=== PATIENT | female | born 1965 | race African-American/Black ===

== ENCOUNTER 2018-08-12 11:24 | Emergency (ER) | payer MEDICAID ==
[~2018-08-12] VITALS: Ht 170.2 cm; Wt 114.4 kg
[2018-08-12 11:31] VITALS: BP 143/78
== END 2018-08-12 22:10 | disposition left against medical advice (07) ==
LOC: ER 11:24
DX: R51 Headache (principal); Z53.21 Procedure and treatment not carried out due to patient leaving prior to being seen by health care provider

== ENCOUNTER 2018-08-18 08:43 | Emergency (ER) | payer MEDICAID ==
[~2018-08-18] VITALS: Ht 170.2 cm; Wt 114.0 kg
[2018-08-18] MEDS ORDERED: IBUPROFEN 800MG TABLET PO ONE (09:30)
[2018-08-18] MEDS ORDERED: TETANUS, DIPHTHERIA, PERTUSSIS VAC/PF 0.5ML (>7YR OLD) IM ONE (09:30)
[2018-08-18] MEDS ORDERED: BACITRACIN ZINC OINT UDPKT TOP ONE (09:30)
[2018-08-18 11:38] VITALS: BP 142/76
== END 2018-08-18 11:41 | disposition home or self-care (01) ==
LOC: ER 08:43
DX: S80.12XA Contusion of left lower leg, initial encounter (principal); E11.9 Type 2 diabetes mellitus without complications; I10 Essential (primary) hypertension; F17.200 Nicotine dependence, unspecified, uncomplicated; F14.10 Cocaine abuse, uncomplicated; Z98.890 Other specified postprocedural states; Y08.89XA Assault by other specified means, initial encounter; Y93.89 Activity, other specified; Y92.89 Other specified places as the place of occurrence of the external cause; Y99.8 Other external cause status
CPT/HCPCS: 73590; 73610; 73630; 90471; 90715; 99284; Z7610

== ENCOUNTER 2019-02-27 01:18 | Emergency (ER) | payer MEDICAID ==
[~2019-02-27] VITALS: Ht 170.2 cm; Wt 114.8 kg
[2019-02-27] MEDS ORDERED: HYDROCODONE/ACETAMINOPHEN 5/325MG TABLET PO ONE (04:30)
[2019-02-27] MEDS ORDERED: PENICILLIN V POTASSIUM 250MG TABLET PO STA (04:34)
[2019-02-27 05:11] VITALS: BP 142/88
[2019-02-27] MEDS ORDERED: PENICILLIN V POTASSIUM 250MG TABLET PO SCH (06:00)
== END 2019-02-27 05:24 | disposition home or self-care (01) ==
LOC: ER 01:18
DX: K04.7 Periapical abscess without sinus (principal); E11.9 Type 2 diabetes mellitus without complications; B19.20 Unspecified viral hepatitis C without hepatic coma; F17.200 Nicotine dependence, unspecified, uncomplicated; Z98.890 Other specified postprocedural states
CPT/HCPCS: 99283

== ENCOUNTER 2019-04-16 19:22 | Emergency (ER) | payer MEDICAID ==
[~2019-04-16] VITALS: Ht 170.2 cm; Wt 118.8 kg
[2019-04-16] MEDS ORDERED: KETOROLAC 60MG/2ML VIAL IM STA (22:31)
[2019-04-16] MEDS ORDERED: HYDROCODONE/ACETAMINOPHEN 5/325MG TABLET PO NR (23:15)
[2019-04-16 23:25] VITALS: BP 173/70
== END 2019-04-16 23:50 | disposition home or self-care (01) ==
LOC: ER 21:44
DX: K04.7 Periapical abscess without sinus (principal); K02.9 Dental caries, unspecified; R51 Headache; I10 Essential (primary) hypertension; F17.200 Nicotine dependence, unspecified, uncomplicated
CPT/HCPCS: 99283

== ENCOUNTER 2020-05-01 05:24 | Emergency (ER) | payer MEDICAID ==
[~2020-05-01] VITALS: Ht 170.2 cm; Wt 118.0 kg
[2020-05-01] MEDS ORDERED: SODIUM CHLORIDE 0.9% 1,000 ML IV ONE (06:39)
[2020-05-01] MEDS ORDERED: ONDANSETRON HCL 4MG/2ML INJ IV STA (06:39)
[2020-05-01] MEDS ORDERED: MORPHINE SULFATE 4 MG/ML CPJ (NOT FOR IM USE) IV STA (06:39)
[2020-05-01 07:15] LABS: BASOPHILS % 0.8 % (0.0-2.0); CHLORIDE 106 mEq/L (98-107); HEMOGLOBIN. 13.8 g/dL (12.0-16.0); LYMPHOCYTES % 25.3 % (20.0-50.0); MEAN CORPUSCULAR HEMOGLOBIN 25.6 pg (28.0-32.0); MEAN CORPUSCULAR VOLUME 76.2 fL (81.0-99.0); MEAN PLATELET VOLUME 7.8 fl (7.4-10.4); MONOCYTES % 10.3 % (2.0-8.0); NEUTROPHILS % 62.6 % (40.0-76.0); PLATELET 348 x1000/uL (130-400); RED BLOOD CELL COUNT 5.37 mill/uL (4.2-5.4); RED CELL DISTRIBUTION WIDTH 17.4 % (11.6-14.6)
[2020-05-01 07:16] LABS: INR 0.9; PROTHROMBIN TIME 10.1 sec (9.6-11.0)
[2020-05-01] MEDS ORDERED: KETOROLAC 15MG/ML VIAL IV ONE (08:15)
[2020-05-01] MEDS ORDERED: ACETAMINOPHEN 500MG TABLET PO ONE (08:15)
[2020-05-01 10:13] VITALS: BP 155/70
== END 2020-05-01 10:00 | disposition home or self-care (01) ==
LOC: ER 05:24
DX: M54.2 Cervicalgia (principal); I10 Essential (primary) hypertension; N28.9 Disorder of kidney and ureter, unspecified; F17.200 Nicotine dependence, unspecified, uncomplicated
CPT/HCPCS: 36415; 70360; 70450; 80053; 85025; 85610; 96374; 96375; 99285; J1885; J2270; J2405; J7030

== ENCOUNTER 2021-02-24 05:46 | Emergency (ER) | payer MEDICAID ==
[~2021-02-24] VITALS: Ht 170.2 cm; Wt 120.0 kg
[2021-02-24] MEDS ORDERED: TOPUD MT (06:22)
[2021-02-24] MEDS ORDERED: CYCL10TA7 MT (06:22)
[2021-02-24] MEDS ORDERED: KETOROLAC 60MG/2ML VIAL IM ONE (06:30)
[2021-02-24 06:32] VITALS: BP 147/75
== END 2021-02-24 06:32 | disposition home or self-care (01) ==
LOC: ER 05:46
DX: M54.12 Radiculopathy, cervical region (principal); I10 Essential (primary) hypertension; N28.9 Disorder of kidney and ureter, unspecified; Z98.890 Other specified postprocedural states; Z79.899 Other long term (current) drug therapy
CPT/HCPCS: 96372; 99283; J1885

== ENCOUNTER 2021-06-07 04:39 | Emergency (ER) | payer MEDICAID ==
[~2021-06-07] VITALS: Ht 170.2 cm; Wt 119.0 kg
[~2021-06-07 04:39] MED LIST: CYCL10TA7 MT; TOPUD MT
[2021-06-07] MEDS ORDERED: IBUP-2029 MT ×2 (05:19)
[2021-06-07] MEDS ORDERED: KETOROLAC 60MG/2ML VIAL IM ONE (05:30)
[2021-06-07] MEDS ORDERED: ACET-2708 MT (05:38)
[2021-06-07] MEDS ORDERED: IBUPROFEN 600MG TABLET PO ONE (05:45)
[2021-06-07] MEDS ORDERED: ACETAMINOPHEN 325MG TABLET PO ONE (05:45)
[2021-06-07 06:18] VITALS: BP 132/69
== END 2021-06-07 06:18 | disposition home or self-care (01) ==
LOC: ER 04:39
DX: M62.838 Other muscle spasm (principal); I10 Essential (primary) hypertension; Z98.890 Other specified postprocedural states; Z79.899 Other long term (current) drug therapy
CPT/HCPCS: 99283

== ENCOUNTER 2021-07-03 03:08 | Inpatient (IN) | payer MEDICAID, OTHER ==
[~2021-07-03] VITALS: Ht 170.2 cm; Wt 121.1 kg
[~2021-07-03 03:08] MED LIST changes: +ACET-2708 MT
[2021-07-03] MEDS ORDERED: MORPHINE SULFATE 4 MG/ML CPJ (NOT FOR IM USE) IV STA (04:41)
[2021-07-03] MEDS ORDERED: ONDANSETRON HCL 4MG/2ML INJ IV STA (04:41)
[2021-07-03] MEDS ORDERED: SODIUM CHLORIDE 0.9% 1,000 ML IV ONE (04:45)
[2021-07-03 05:09] LABS: BASOPHILS % 0.4 % (0.0-2.0); EOSINOPHILS % 1.3 % (0.0-5.0); HEMATOCRIT. 39.5 % (36.0-48.0); HEMOGLOBIN. 13.5 g/dL (12.0-16.0); LYMPHOCYTES % 11.6 % (20.0-50.0); MEAN CORPUSCULAR HEMOGLOBIN 24.6 pg (28.0-32.0); MEAN CORPUSCULAR VOLUME 71.9 fL (81.0-99.0); MEAN PLATELET VOLUME 7.7 fl (7.4-10.4); MONOCYTES % 5.8 % (2.0-8.0); NEUTROPHILS % 80.9 % (40.0-76.0); PLATELET 373 x1000/uL (130-400); RED CELL DISTRIBUTION WIDTH 17.8 % (11.6-14.6)
[2021-07-03 05:17] LABS: CHLORIDE 103 mEq/L (98-107)
[2021-07-03 07:23] LABS: CLARITY URINE CLEAR (CLEAR); COLOR URINE YELLOW (YELLOW); KETONES URINE NEGATIVE (NEGATIVE); LEUKOCYTE ESTERASE URINE NEGATIVE (NEGATIVE); NITRITE URINE NEGATIVE (NEGATIVE); OCCULT BLOOD URINE NEGATIVE (NEGATIVE); PH URINE 5.5 (4.5-8.0); PROTEIN URINE 3+ (NEGATIVE); SPECIFIC GRAVITY URINE 1.014 (1.005-1.030); UROBILINOGEN URINE 0.2 E.U./dL (0.2-1.0)
[2021-07-03] MEDS ORDERED: MORPHINE SULFATE 4 MG/ML CPJ (NOT FOR IM USE) IV ONE (07:30)
[2021-07-03] MEDS ORDERED: ONDANSETRON HCL 4MG/2ML INJ IV PRN (09:00)
[2021-07-03] MEDS ORDERED: MORPHINE SULFATE 2 MG/ML CPJ (NOT FOR IM USE) IV PRN (09:00)
[2021-07-03] MEDS ORDERED: POTASSIUM CHLORIDE 20MEQ TABLET SR PO SCH (09:00)
[2021-07-03] MEDS ORDERED: CEFTRIAXONE 1 G PREMIX 50 ML IV SCH (09:00)
[2021-07-03] MEDS ORDERED: CLONIDINE 0.1MG TABLET PO PRN (09:00)
[2021-07-03] MEDS ORDERED: ACETAMINOPHEN 325MG TABLET PO PRN (09:00)
[2021-07-03] MEDS ORDERED: NALOXONE HCL 0.4MG/ML VIAL IV PRN (09:00)
[2021-07-03] MEDS ORDERED: DIPHENHYDRAMINE 50MG/ML VIAL IV PRN (09:00)
[2021-07-03] MEDS: INSULIN LISPRO 100 UNITS/ML SUBCUT SCH ×3 (12:00→21:00)
[2021-07-03] MEDS ORDERED: DEXTROSE 50% WATER 50ML SYRINGE IV PRN (12:00)
[2021-07-03] MEDS: BLOOD SUGAR DIAGNOSTIC STRIP TEST SCH ×3 (12:10→21:00)
[2021-07-03] MEDS: MORPHINE SULFATE 4 MG/ML CPJ (NOT FOR IM USE) IV PRN ×2 (16:35→22:35)
[2021-07-03 17:00] VITALS: BP 139/71
[2021-07-03 17:04] VITALS: BP 139/71
[2021-07-03] MEDS ORDERED: AMLO5TAB4 MT (17:15)
[2021-07-03 20:00] VITALS: BP 125/51
[2021-07-04] VITALS: BP 118/49
[2021-07-04 04:00] VITALS: BP 126/84
[2021-07-04] MEDS: MORPHINE SULFATE 4 MG/ML CPJ (NOT FOR IM USE) IV PRN ×3 (05:03→14:39)
[2021-07-04 07:24] LABS: BASOPHILS % 0.3 % (0.0-2.0); EOSINOPHILS % 0.2 % (0.0-5.0); HEMATOCRIT. 37.7 % (36.0-48.0); HEMOGLOBIN. 12.5 g/dL (12.0-16.0); LYMPHOCYTES % 11.2 % (20.0-50.0); MEAN CORPUSCULAR VOLUME 72.5 fL (81.0-99.0); MEAN PLATELET VOLUME 7.9 fl (7.4-10.4); NEUTROPHILS % 80.3 % (40.0-76.0); PLATELET 368 x1000/uL (130-400); RED BLOOD CELL COUNT 5.19 mill/uL (4.2-5.4); RED CELL DISTRIBUTION WIDTH 17.8 % (11.6-14.6)
[2021-07-04 07:43] LABS: CHLORIDE 104 mEq/L (98-107)
[2021-07-04] MEDS: INSULIN LISPRO 100 UNITS/ML SUBCUT SCH ×4 (07:50→23:18)
[2021-07-04 07:54] LABS: LDL CHOLESTEROL 134 mg/dL (5-100)
[2021-07-04 07:56] LABS: HDL CHOLESTEROL 82 mg/dL (40-59)
[2021-07-04 08:00] VITALS: BP 110/50
[2021-07-04] MEDS: BLOOD SUGAR DIAGNOSTIC STRIP TEST SCH ×4 (08:00→21:00)
[2021-07-04] MEDS: CEFTRIAXONE 1,000 MG in DEXTROSE 5% WATER 50 ML IV SCH (09:39)
[2021-07-04] MEDS ORDERED: POTASSIUM CHLORIDE 20MEQ TABLET SR PO NR (10:15)
[2021-07-04] MEDS: SODIUM CHLORIDE 0.9% 1,000 ML IV SCH ×2 (10:43→20:15)
[2021-07-04 12:00] VITALS: BP 111/57
[2021-07-04] MEDS ORDERED: IOHEXOL-350 100 ML BOTTLE ONE (14:32)
[2021-07-04 15:42] LABS: HCG SCREEN NEGATIVE
[2021-07-04 15:52] LABS: INR 1.1; PROTHROMBIN TIME 11.4 sec (9.6-11.0)
[2021-07-04 16:00] VITALS: BP 158/59
[2021-07-04] MEDS: METRONIDAZOLE 500 MG PREMIX 100 ML IV SCH ×2 (16:00→19:40)
[2021-07-04] MEDS ORDERED: SKIN ADHESIVE 0.7 GM EA TOP ONE (16:09)
[2021-07-04] MEDS ORDERED: BUPIVACAINE HCL 0.5% (5MG/ML) 50ML ONE (16:10)
[2021-07-04] MEDS ORDERED: MEPERIDINE HCL/PF 25MG/ML CPJ IV PRN (16:15)
[2021-07-04] MEDS ORDERED: ONDANSETRON HCL 4MG/2ML INJ IV PRN ×2 (16:15→16:30)
[2021-07-04] MEDS ORDERED: LABETALOL 5MG/ML SYR 20 MG/4 ML SYRINGE IV PRN (16:15)
[2021-07-04] MEDS ORDERED: MORPHINE SULFATE 2 MG/ML CPJ (NOT FOR IM USE) IV PRN (16:30)
[2021-07-04] MEDS ORDERED: HYDROCODONE/ACETAMINOPHEN 5/325MG TABLET PO PRN ×2 (16:30)
[2021-07-04] MEDS ORDERED: PROPOFOL 200MG/20ML VIAL IV ONE (16:33)
[2021-07-04] MEDS ORDERED: ROCURONIUM BROMIDE 10MG/ML VIAL 5ML IV ONE (16:33)
[2021-07-04] MEDS ORDERED: CEFAZOLIN SODIUM 1000MG/VIAL ONE (16:48)
[2021-07-04] MEDS ORDERED: DEXAMETHASONE 4MG/ML 1ML VIAL ONE (16:48)
[2021-07-04] MEDS ORDERED: GLYCOPYRROLATE 0.2 MG/ML 2ML VIAL ONE ×2 (16:51→17:23)
[2021-07-04] MEDS ORDERED: NEOSTIGMINE METHYLSULFATE 1MG/ML 10 ML VIAL ONE (17:22)
[2021-07-04] MEDS: HYDROMORPHONE HCL/PF 2MG/ML CPJ IV PRN ×2 (18:16→20:56)
[2021-07-04] MEDS: DEXT 5%/0.45% NACL KCL 20MEQ/L 1,000 ML IV SCH (19:39)
[2021-07-04 21:49] VITALS: BP 116/54
[2021-07-05 00:30] VITALS: BP 117/59
[2021-07-05] MEDS: MORPHINE SULFATE 4 MG/ML CPJ (NOT FOR IM USE) IV PRN ×2 (00:32→09:35)
[2021-07-05] MEDS: DEXT 5%/0.45% NACL KCL 20MEQ/L 1,000 ML IV SCH (03:54)
[2021-07-05 04:00] VITALS: BP 107/56
[2021-07-05] MEDS: METRONIDAZOLE 500 MG PREMIX 100 ML IV SCH (05:38)
[2021-07-05] MEDS: SODIUM CHLORIDE 0.9% 1,000 ML IV SCH (05:38)
[2021-07-05] MEDS: BLOOD SUGAR DIAGNOSTIC STRIP TEST SCH ×2 (06:38→12:25)
[2021-07-05 07:20] LABS: HEMATOCRIT. 36.8 % (36.0-48.0); MEAN CORPUSCULAR HEMOGLOBIN 24.2 pg (28.0-32.0); MEAN CORPUSCULAR VOLUME 74.3 fL (81.0-99.0); MEAN PLATELET VOLUME 7.9 fl (7.4-10.4); PLATELET 340 x1000/uL (130-400); RED BLOOD CELL COUNT 4.95 mill/uL (4.2-5.4)
[2021-07-05 07:31] LABS: CHLORIDE 104 mEq/L (98-107)
[2021-07-05 07:39] LABS: PHOSPHORUS 2.8 mg/dL (2.5-4.9)
[2021-07-05 07:42] LABS: CREATINE KINASE 104 IU/L (26-192)
[2021-07-05 08:00] VITALS: BP 118/61
[2021-07-05] MEDS: CEFTRIAXONE 1,000 MG in DEXTROSE 5% WATER 50 ML IV SCH (09:37)
[2021-07-05] MEDS: INSULIN LISPRO 100 UNITS/ML SUBCUT SCH ×2 (09:43→12:46)
[2021-07-05] MEDS ORDERED: KCL 20MEQ/100ML PREMIX 100 ML IV NR (11:00)
[2021-07-05] MEDS ORDERED: POTASSIUM CHLORIDE 20MEQ TABLET SR PO NR (11:45)
[2021-07-05 12:00] VITALS: BP 117/60
[2021-07-05 13:03] VITALS: BP 117/60
[2021-07-06 10:29] LABS: PLATELET ESTIMATE NORMAL
== END 2021-07-05 13:55 | disposition home or self-care (01) | DRG 710 ==
LOC: ER 03:08 → MICUSO 08:05 → 6EST 14:02
PROVIDERS: ADMIT Internal Medicine; ATTEND Internal Medicine
PROC: 0DTJ4ZZ Resection of Appendix, Percutaneous Endoscopic Approach (ICD-10-PCS; principal; 2021-07-04)
DX: A41.9 Sepsis, unspecified organism (principal); E11.22 Type 2 diabetes mellitus with diabetic chronic kidney disease; N17.9 Acute kidney failure, unspecified; E44.1 Mild protein-calorie malnutrition; N18.30 Chronic kidney disease, stage 3 unspecified; K35.80 Unspecified acute appendicitis; E66.01 Morbid (severe) obesity due to excess calories; E87.6 Hypokalemia; F17.200 Nicotine dependence, unspecified, uncomplicated; Z20.822 Contact with and (suspected) exposure to COVID-19; I10 Essential (primary) hypertension; N39.0 Urinary tract infection, site not specified; I12.9 Hypertensive chronic kidney disease with stage 1 through stage 4 chronic kidney disease, or unspecified chronic kidney disease; Z79.1 Long term (current) use of non-steroidal anti-inflammatories (NSAID); Z82.49 Family history of ischemic heart disease and other diseases of the circulatory system; Z68.41 Body mass index [BMI] 40.0-44.9, adult; Z83.3 Family history of diabetes mellitus
CPT/HCPCS: 36415; 71045; 73706; 74174; 74176; 80053; 80061; 81003; 82550; 82962; 83036; 83605; 83735; 84100; 84145; 84443; 84703; 85025; 86850; 86900; 87426; 88304; 93005; 93970; 99285; J0690; J0696; J1100; J1170; J1815; J2175; J2270; J2405; J2704; J2710; J3480; J3490; J7030; J7040; J7060; Q9967

== ENCOUNTER 2021-08-30 04:31 | Emergency (ER) | payer OTHER ==
[~2021-08-30] VITALS: Ht 170.2 cm; Wt 121.0 kg
[~2021-08-30 04:31] MED LIST changes: -ACET-2708 MT; +AMLO5TAB4 MT; -TOPUD MT
[2021-08-30] MEDS ORDERED: METHOCARBAMOL 500MG TABLET PO ONE (05:15)
[2021-08-30] MEDS ORDERED: TRAMADOL 50MG TABLET PO ONE (05:15)
[2021-08-30] MEDS ORDERED: NAPR-681 MT (07:44)
[2021-08-30] MEDS ORDERED: METH-773 MT (07:44)
[2021-08-30] MEDS ORDERED: KETOROLAC 60MG/2ML VIAL IM ONE (07:45)
[2021-08-30 08:50] VITALS: BP 125/70
== END 2021-08-30 08:54 | disposition home or self-care (01) ==
LOC: ER 04:31
DX: S16.1XXA Strain of muscle, fascia and tendon at neck level, initial encounter (principal); F17.200 Nicotine dependence, unspecified, uncomplicated; I10 Essential (primary) hypertension; Z90.49 Acquired absence of other specified parts of digestive tract; X58.XXXA Exposure to other specified factors, initial encounter; Y93.89 Activity, other specified; Y92.89 Other specified places as the place of occurrence of the external cause; Y99.8 Other external cause status
CPT/HCPCS: 72040; 73030; 96372; 99284; J1885; A4565; A4315

== ENCOUNTER 2022-05-02 10:27 | Emergency (ER) | payer MEDICAID, OTHER ==
[~2022-05-02] VITALS: Ht 170.2 cm; Wt 117.0 kg
[~2022-05-02 10:27] MED LIST changes: +CYCL10TA21 MT; -CYCL10TA7 MT; +IBUP-2029 MT; +METH-653 MT; +METH-773 MT; +NAPR-681 MT
[2022-05-02 10:46] VITALS: BP 117/61
[2022-05-02 11:25] LABS: BASOPHILS % 0.7 % (0.0-2.0); EOSINOPHILS % 1.6 % (0.0-5.0); HEMATOCRIT. 38.2 % (36.0-48.0); HEMOGLOBIN. 12.5 g/dL (12.0-16.0); LYMPHOCYTES % 22.1 % (20.0-50.0); MEAN CORPUSCULAR HEMOGLOBIN 23.5 pg (28.0-32.0); MEAN CORPUSCULAR VOLUME 71.7 fL (81.0-99.0); MEAN PLATELET VOLUME 7.5 fl (7.4-10.4); NEUTROPHILS % 67.6 % (40.0-76.0); PLATELET 450 x1000/uL (130-400); RED BLOOD CELL COUNT 5.33 mill/uL (4.2-5.4); RED CELL DISTRIBUTION WIDTH 16.8 % (11.6-14.6)
[2022-05-02 11:39] LABS: CHLORIDE 106 mEq/L (98-107)
[2022-05-02 11:51] LABS: HCG SCREEN NEGATIVE
[2022-05-02] MEDS ORDERED: MORPHINE SULFATE 10 MG/ML CPJ IM ONE (12:45)
[2022-05-02] MEDS ORDERED: DICLOFENAC SODIUM 75MG DR (EC) TABLET PO ONE (12:45)
[2022-05-02 12:49] LABS: CLARITY URINE CLEAR (CLEAR); COLOR URINE YELLOW (YELLOW); KETONES URINE NEGATIVE (NEGATIVE); LEUKOCYTE ESTERASE URINE NEGATIVE (NEGATIVE); NITRITE URINE NEGATIVE (NEGATIVE); OCCULT BLOOD URINE NEGATIVE (NEGATIVE); PH URINE 5.5 (4.5-8.0); PROTEIN URINE 2+ (NEGATIVE); SPECIFIC GRAVITY URINE 1.013 (1.005-1.030)
== END 2022-05-02 13:45 | disposition home or self-care (01) ==
LOC: ER 10:27
DX: S39.012A Strain of muscle, fascia and tendon of lower back, initial encounter (principal); I10 Essential (primary) hypertension; Z90.49 Acquired absence of other specified parts of digestive tract; X50.1XXA Overexertion from prolonged static or awkward postures, initial encounter; Y93.89 Activity, other specified; Y92.89 Other specified places as the place of occurrence of the external cause; Y99.8 Other external cause status
CPT/HCPCS: 36415; 80053; 81003; 83690; 84703; 85025; 96372; 99283; J2270

== ENCOUNTER 2022-11-20 10:30 | Emergency (ER) | payer MEDICAID, OTHER ==
[~2022-11-20] VITALS: Ht 172.7 cm; Wt 105.0 kg
[2022-11-20] MEDS ORDERED: METHYLPREDNISOLONE SOD SUCC 125 MG/2 ML VIAL IM STA (11:54)
[2022-11-20] MEDS ORDERED: ACETAMINOPHEN WITH CODEINE 300/30MG TABLET PO STA (11:54)
[2022-11-20] MEDS ORDERED: KETOROLAC 30MG/ML VIAL IM ONE (12:00)
[2022-11-20 12:50] VITALS: BP 148/78
[2022-11-20] MEDS ORDERED: T3 PO (14:05)
[2022-11-20] MEDS ORDERED: DICL100G31 TP (14:05)
[2022-11-20] MEDS ORDERED: METH-773 PO (14:05)
== END 2022-11-20 12:22 | disposition home or self-care (01) ==
LOC: ER 10:30
DX: M54.12 Radiculopathy, cervical region (principal); M47.892 Other spondylosis, cervical region; R25.2 Cramp and spasm; M19.09 Primary osteoarthritis, other specified site; I12.9 Hypertensive chronic kidney disease with stage 1 through stage 4 chronic kidney disease, or unspecified chronic kidney disease; N18.9 Chronic kidney disease, unspecified; Z98.890 Other specified postprocedural states
CPT/HCPCS: 96372; 99284; J1885; J2930

== ENCOUNTER 2023-01-08 15:13 | Emergency (ER) | payer MEDICAID, OTHER ==
[~2023-01-08] VITALS: Ht 170.2 cm; Wt 117.0 kg
[~2023-01-08 15:13] MED LIST changes: +DICL100G31 TP; +METH-773 PO; +T3 PO
[2023-01-08 15:23] VITALS: BP 109/79
[2023-01-08] MEDS ORDERED: IBUPROFEN 600MG TABLET PO ONE (18:15)
[2023-01-08] MEDS ORDERED: HYDROCODONE/ACETAMINOPHEN 5/325MG TABLET PO ONE (18:15)
[2023-01-08] MEDS ORDERED: IBUP-2028 MT (19:37)
[2023-01-08] MEDS ORDERED: HYDR-4001 MT (19:37)
== END 2023-01-08 21:01 | disposition home or self-care (01) ==
LOC: ER 15:13
DX: S82.492A Other fracture of shaft of left fibula, initial encounter for closed fracture (principal); M19.90 Unspecified osteoarthritis, unspecified site; X58.XXXA Exposure to other specified factors, initial encounter; Y93.9 Activity, unspecified; Y92.9 Unspecified place or not applicable; I12.9 Hypertensive chronic kidney disease with stage 1 through stage 4 chronic kidney disease, or unspecified chronic kidney disease; N18.9 Chronic kidney disease, unspecified; Z98.890 Other specified postprocedural states
CPT/HCPCS: 29515; 73610; 73630; 93971; 99284; Z7610

== ENCOUNTER 2023-02-12 10:56 | Emergency (ER) | payer MEDICAID ==
[~2023-02-12] VITALS: Ht 170.2 cm; Wt 90.0 kg
[~2023-02-12 10:56] MED LIST changes: +HYDR-4001 MT; +IBUP-2028 MT
[2023-02-12] MEDS ORDERED: HYDROCODONE/ACETAMINOPHEN 5/325MG TABLET PO ONE (12:00)
[2023-02-12 12:03] VITALS: BP 132/65
[2023-02-12] MEDS ORDERED: NAPR-681 MT (12:42)
[2023-02-12] MEDS ORDERED: T3 PO (12:42)
== END 2023-02-12 13:04 | disposition home or self-care (01) ==
LOC: ER 10:56
DX: M25.561 Pain in right knee (principal); M17.11 Unilateral primary osteoarthritis, right knee; I10 Essential (primary) hypertension; Z98.890 Other specified postprocedural states
CPT/HCPCS: 73562; 99283; L1830; Z7610

== ENCOUNTER 2023-03-30 21:35 | Emergency (ER) | payer MEDICAID ==
[~2023-03-30] VITALS: Ht 170.2 cm; Wt 114.5 kg
[2023-03-30] MEDS ORDERED: KETOROLAC 60MG/2ML VIAL IM ONE (23:00)
[2023-03-30] MEDS ORDERED: LIDO1ADH62 TP (23:04)
[2023-03-30] MEDS ORDERED: IBUP-2029 MT (23:04)
[2023-03-30 23:20] VITALS: BP 138/66
== END 2023-03-30 23:20 | disposition home or self-care (01) ==
LOC: ER 21:35
DX: M25.512 Pain in left shoulder (principal); M25.511 Pain in right shoulder; I10 Essential (primary) hypertension; Z90.49 Acquired absence of other specified parts of digestive tract; Z79.899 Other long term (current) drug therapy
CPT/HCPCS: 96372; 99283; J1885